=== PATIENT | female | born 1985 | race African-American/Black ===

== ENCOUNTER 2017-01-26 11:08 | Emergency (ER) | payer OTHER ==
[~2017-01-26 11:08] MED LIST: PROBIOTIC1 EAC4 PO; SERTRALINE HCL25 M2 PO; SUMATRIPTAN SU100 MG PO; ZOFRAN PO; ZYRTEC10 M2 PO
== END 2017-01-26 11:09 | disposition home or self-care (01) ==
LOC: SED 11:08
DX: J06.9 Acute upper respiratory infection, unspecified (principal); Z88.8 Allergy status to other drugs, medicaments and biological substances; Z79.899 Other long term (current) drug therapy
CPT/HCPCS: 82947; 99282

== ENCOUNTER 2017-03-20 10:34 | Emergency (ER) | payer OTHER ==
[2017-03-20] MEDS ORDERED: MIGRAINE MED (10:40)
== END 2017-03-20 11:25 | disposition home or self-care (01) ==
LOC: SED 10:34
DX: S40.262A Insect bite (nonvenomous) of left shoulder, initial encounter (principal); S00.561A Insect bite (nonvenomous) of lip, initial encounter; G43.909 Migraine, unspecified, not intractable, without status migrainosus; F17.200 Nicotine dependence, unspecified, uncomplicated; W57.XXXA Bitten or stung by nonvenomous insect and other nonvenomous arthropods, initial encounter
CPT/HCPCS: 84703; 99283